=== PATIENT | female | born 1940 | race Caucasian/White ===

== ENCOUNTER 2016-12-26 09:47 | Emergency (ER) | payer OTHER ==
[~2016-12-26 09:47] MED LIST: ALBU6.7H INH; CEFU1TAB20 PO; DOXY100T PO; FEMORA; GLIM1 PO; HYDR-3533 PO; INHALER; LEVO100T75 PO; METF-324 OR; NEBUMIS6; PRAV10 PO; PRED20 PO; ULTR50TA PO; ZAFI20TA PO
[2016-12-26 09:55] VITALS: BP 148/76; PULSE 108; RESP 20; TEMP 98.3; O2SAT 97
[2016-12-26] MEDS ORDERED: ALBU6.7H INH (10:12)
[2016-12-26] MEDS ORDERED: METF1000 PO (10:12)
[2016-12-26] MEDS ORDERED: LEVO100T5 PO (10:12)
[2016-12-26] MEDS ORDERED: ZAFI1TAB4 PO (10:12)
[2016-12-26] MEDS ORDERED: AMAR4TAB PO (10:12)
[2016-12-26] MEDS ORDERED: PRAV10TA PO (10:12)
--- NOTE | 2016-12-26 10:25 | PD ---
HPI Chief Complaint: Complaint Time Seen by Provider: 10:08 Travel History International Travel<30 days: No Contact w/Intl Traveler<30days: No Traveled to known affect area: No History of Present Illness HPI This patient complains primarily of pain from her sciatica. She has pain in the left buttock and radiates down the left leg. She is not a new problem. She says that she's been sitting in a recliner in hospice for 2 weeks keeping an eye and her and this is flare of her sciatica. No injury or fever. 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 Symptom severity is moderate. She also thinks she might have a UTI because she has dysuria. PFSH Past Medical History Arthritis: Yes Asthma: Yes Cancer: Yes (LEFT BREAST) Cardiovascular Problems: No High Cholesterol: Yes Chemotherapy: Yes (COMPLETED) Diabetes: Yes Patient Takes Glucophage: Yes Diminished Hearing: No Glaucoma: No Hepatitis: No Hypertension: Yes Implanted Vascular Access Dvce: Yes Respiratory: Yes (ASTHMA) Thyroid Disease: Yes (HYPOTHYROIDISM) Tetanus Vaccination: > 5 Years Influenza Vaccination: Yes ?: Not Tubal Ligation: Yes Past Surgical History Abdominal Surgery: Yes (HECTOR) Body Medical Devices: INFUSAPORT ?? Cardiac Surgery: No Cholecystectomy: Yes Ear Surgery: No Endocrine Surgery: No Eye Surgery: No Genitourinary Surgery: No Gynecologic Surgery: Yes (TUBAL LIGATION) Neurologic Surgery: No Oral Surgery: No Pacemaker: No Other Surgery: Yes (LEFT MASECTOMY 2009, 2 SINUS SURGERY) Social History Alcohol Use: No Tobacco Use: No Substance Use: No Allergies-Medications (Allergen,Severity, Reaction): Coded Allergies: Codeine (Verified Allergy, Severe, UNKNOWN, 12/26/16) Contrast Media (Verified Allergy, Severe, HIVES, 12/26/16) Keflex (Verified Allergy, Severe, Anaphylaxis, 12/26/16) Sudafed (Unverified Allergy, Severe, RAPID HEART RATE, 12/26/16) Darvon (Verified Allergy, Mild, CHEST PAIN, 12/26/16) Uncoded Allergies: MOTH BALLS (Allergy, Severe, SWELLING, 07/02/11) Reported Meds & Prescriptions Reported Meds & Active Scripts Active Bactrim DS (Sulfamethoxazole-Trimethoprim) 800-160 Mg Tab 1 Tab PO BID Percocet (Oxycodone-Acetaminophen) 5-325 mg Tab 1 Tab PO Q6H PRN Reported Zafirlukast 20 Mg Tab 20 Mg PO BIDAC Pravastatin 10 Mg Tab 10 Mg PO DAILY Metformin (Metformin HCl) 1,000 Mg Tab 1,000 Mg PO BIDPC With meals Levothyroxine (Levothyroxine Sodium) 100 Mcg Tab 100 Mcg PO DAILY Amaryl (Glimepiride) 4 Mg Tab 4 Mg PO BID Take with breakfast or the first main meal Proventil Hfa 6.7 GM Inh (Albuterol Sulfate) 90 Mcg/Act Aer 1 Puff INH BID PRN [Femora] [Nebulizer] Review of Systems General / Constitutional: No: Fever Eyes: No: Visual changes HENT: No: Headaches Cardiovascular: No: Chest Pain or Discomfort Respiratory: No: Shortness of Breath Gastrointestinal: No: Abdominal Pain Genitourinary: Positive: Dysuria Musculoskeletal: Positive: Pain Skin: No Rash Neurologic: No: Weakness Psychiatric: No: Depression Endocrine: No: Polydipsia Hematologic/Lymphatic: No: Easy Bruising Physical Exam Narrative GENERAL: Well-nourished, well-developed patient with sciatica pain . SKIN: Focused skin assessment reveals no rash and nodules. Skin is Warm and dry. HEAD: Atraumatic. Normocephalic. EYES: Pupils equal and round. No scleral icterus. No injection or drainage. ENT: No nasal bleeding or discharge. Mucous membranes pink and moist. NECK: Trachea midline. No JVD. CARDIOVASCULAR: Regular rate and rhythm. No murmur appreciated. RESPIRATORY: No accessory muscle use. Clear to auscultation. Breath sounds equal bilaterally. GASTROINTESTINAL: Abdomen soft, non-tender, nondistended. Hepatic and splenic margins not palpable. MUSCULOSKELETAL: No obvious deformities. No clubbing. No cyanosis. No edema. Positive straight leg raise on the left NEUROLOGICAL: Awake and alert. No obvious cranial nerve deficits. Motor grossly within normal limits. Normal speech. PSYCHIATRIC: Appropriate mood and affect; insight and judgment normal. Data Data Last Documented VS Vital Signs Date Time Temp Pulse Resp B/P Pulse Ox O2 Delivery O2 Flow Rate FiO2 12/26/16 09:55 98.3 108 20 148/76 97 Orders Ketorolac Inj (Toradol Inj) (12/26/16 10:30) Urinalysis - C+S If Indicated (12/26/16 10:17) Urine Culture (12/26/16 10:25) Labs Laboratory Tests Test 12/26/16 10:25 Urine Collection Type CLEAN CATCH Urine Color YELLOW Urine Turbidity SLIGHT Urine pH 5.0 Urine Specific [place] 1.008 Urine Protein NEG mg/dL Urine Glucose (UA) NEG mg/dL Urine Ketones NEG mg/dL Urine Occult Blood TRACE Urine Nitrite NEG Urine Bilirubin NEG Urine Leukocyte Esterase MOD Urine RBC 4-9 /hpf Urine WBC 50-99 /hpf Urine WBC Clumps MANY Urine Squamous Epithelial 0-5 /hpf Cells Urine Bacteria OCC /hpf Microscopic Urinalysis Comment CULTURE INDICATED Urine Collection Time 10:25 [facility] Medical Decision Making Medical Screen Exam Complete: Yes Emergency Medical Condition: Yes Medical Record Reviewed: Yes Differential Diagnosis Sciatica, hamstring pain, chronic pain Narrative Course I have reviewed the patient's electronic medical record. I gave her injection of Toradol She drove herself here She is at neurologic baseline without red flags for imaging. No fever or injury etc. Urinalysis shows pyuria and consistent with infection and 5 days of Bactrim written I wrote a few Percocet for pain relief To follow-up with primary care Diagnosis Primary Impression: Sciatic leg pain Additional Impression: Cystitis Additional Instructions: The patient was advised to follow up with their physician and return if they worsen. The patient was warned about potential sedation for the medications they will receive on prescription. Med/Other Pt SpecificInfo: Prescription(s) given Scripts Sulfamethoxazole-Trimethoprim (Bactrim DS)800-160 Mg Tab1 Tab PO BID #10 TAB Ref 0 Prov:Alexei Pedro MD 12/26/16 Oxycodone-Acetaminophen (Percocet)5-325 mg Tab1 Tab PO Q6H PRN (PAIN) #15 TAB Ref 0 Prov:Alexei Pedro MD 12/26/16 Disposition: 01 DISCHARGE HOME Condition: Stable Alexei Pedro MD Dec 26, 2016 10:25
[2016-12-26 10:30] LABS: BLOOD, URINE TRACE (NEG); GLUCOSE,URINE NEG (NEG); KETONE, URINE NEG (NEG); NITRITE,URINE NEG (NEG)
[2016-12-26] MEDS ORDERED: KETOROLAC TROMETHAMINE 60 MG/2 ML (IM) VIAL IM ONE (10:30)
[2016-12-26 10:34] LABS: METHOD OF COLLECTION CLEAN CATCH; URINE COLOR YELLOW (YELLW/STRAW)
[2016-12-26 10:36] LABS: BACTERIA, URINE OCC /hpf; COMMENT (UR) CULTURE INDICATED; CULTURE IF INDICATED CULTURE INDICATED; SQUAMOUS EPITHELIAL CELL URINE 0-5 /hpf (0-5)
[2016-12-26] MEDS ORDERED: PERC5TAB12 PO (11:36)
[2016-12-26] MEDS ORDERED: BACT800T5 PO (11:36)
[2016-12-26 11:37] VITALS: BP 142/54; PULSE 84; RESP 16; O2SAT 99
== END 2016-12-26 11:47 | disposition home or self-care (01) ==
LOC: PHED 09:47
DX: M54.32 Sciatica, left side (principal); N30.90 Cystitis, unspecified without hematuria; B96.20 Unspecified Escherichia coli [E. coli] as the cause of diseases classified elsewhere; E11.9 Type 2 diabetes mellitus without complications; I10 Essential (primary) hypertension; E03.9 Hypothyroidism, unspecified; E78.00 Pure hypercholesterolemia, unspecified; Z79.84 Long term (current) use of oral hypoglycemic drugs; Z87.39 Personal history of other diseases of the musculoskeletal system and connective tissue; Z87.09 Personal history of other diseases of the respiratory system; Z85.3 Personal history of malignant neoplasm of breast
CPT/HCPCS: 81001; 87077; 87086; 87186; 96372; 99284; J1885

== ENCOUNTER 2016-12-29 12:27 | Emergency (ER) | payer OTHER ==
[~2016-12-29] VITALS: Ht 157.5 cm; Wt 93.8 kg
[~2016-12-29 12:27] MED LIST changes: +AMAR4TAB PO; +BACT800T5 PO; -CEFU1TAB20 PO; -DOXY100T PO; -GLIM1 PO; -HYDR-3533 PO; -INHALER; +LEVO100T5 PO; -LEVO100T75 PO; -METF-324 OR; +METF1000 PO; +PERC5TAB12 PO; -PRAV10 PO; +PRAV10TA PO; -PRED20 PO; -ULTR50TA PO; +ZAFI1TAB4 PO; -ZAFI20TA PO
[2016-12-29 12:33] VITALS: BP 144/60; PULSE 82; RESP 18; TEMP 98.1; O2SAT 98
[2016-12-29] MEDS ORDERED: traMADol HCL 50 MG TAB PO ONE (13:45)
[2016-12-29] MEDS ORDERED: KETOROLAC TROMETHAMINE 60 MG/2 ML (IM) VIAL IM ONE (13:45)
[2016-12-29 13:56] LABS: BLOOD, URINE NEG (NEG); GLUCOSE,URINE NEG (NEG); KETONE, URINE NEG (NEG); NITRITE,URINE NEG (NEG)
[2016-12-29 14:04] LABS: METHOD OF COLLECTION CLEAN CATCH; URINE COLOR STRAW (YELLW/STRAW)
[2016-12-29 14:07] LABS: COMMENT (UR) CULT NOT INDICATED; CULTURE IF INDICATED CULT NOT INDICATED; SQUAMOUS EPITHELIAL CELL URINE 0-2 /hpf (0-5); URIC ACID CRYSTALS, URINE MANY /hpf; WBC, URINE 0-2 /hpf (0-5)
[2016-12-29] MEDS ORDERED: TRAM50TA PO (14:16)
--- NOTE | 2016-12-29 14:17 | PD ---
HPI Chief Complaint: Pain: Acute or Chronic Time Seen by Provider: 13:27 Travel History International Travel<30 days: No Contact w/Intl Traveler<30days: No Traveled to known affect area: No History of Present Illness HPI 76 f c/o L low back pain with radiation inferiorly to ankle for approx one week. she was seen here and reports tramadol only marginally helpful. she cannot tolerate stronger opioids. she reports a hx of sciatica in the past however pain today is worse than before. she also c/o urinary frequency and dysuria. no fever/chills/nausea/vomiting. no fecal/urinary incontinence, no numbness tingling in saddle distribution. PFSH Past Medical History Arthritis: Yes Asthma: Yes Cancer: Yes (LEFT BREAST) Cardiovascular Problems: No High Cholesterol: Yes Chemotherapy: Yes (COMPLETED) Diabetes: Yes Patient Takes Glucophage: Yes Diminished Hearing: No Glaucoma: No Hepatitis: No Hypertension: Yes Implanted Vascular Access Dvce: Yes Respiratory: Yes (ASTHMA) Thyroid Disease: Yes (HYPOTHYROIDISM) Tetanus Vaccination: > 5 Years Influenza Vaccination: Yes ?: Not Tubal Ligation: Yes Past Surgical History Abdominal Surgery: Yes (HECTOR) Body Medical Devices: INFUSAPORT ?? Cardiac Surgery: No Cholecystectomy: Yes Ear Surgery: No Endocrine Surgery: No Eye Surgery: No Genitourinary Surgery: No Gynecologic Surgery: Yes (TUBAL LIGATION) Neurologic Surgery: No Oral Surgery: No Pacemaker: No Other Surgery: Yes (LEFT MASECTOMY 2009, 2 SINUS SURGERY) Social History Alcohol Use: No Tobacco Use: No Substance Use: No Allergies-Medications (Allergen,Severity, Reaction): Coded Allergies: Codeine (Verified Allergy, Severe, UNKNOWN, 12/29/16) Contrast Media (Verified Allergy, Severe, HIVES, 12/29/16) Keflex (Verified Allergy, Severe, Anaphylaxis, 12/29/16) Sudafed (Unverified Allergy, Severe, RAPID HEART RATE, 12/29/16) Darvon (Verified Allergy, Mild, CHEST PAIN, 12/29/16) Uncoded Allergies: MOTH BALLS (Allergy, Severe, SWELLING, 07/02/11) Reported Meds & Prescriptions Reported Meds & Active Scripts Active Tizanidine (Tizanidine HCl) 2 Mg Cap 2 Mg PO TID Prednisone 20 Mg Tab 40 Mg PO DAILY 4 Days Take 40 mg (2 tablets) daily for 5 days Bactrim DS (Sulfamethoxazole-Trimethoprim) 800-160 Mg Tab 1 Tab PO BID Percocet (Oxycodone-Acetaminophen) 5-325 mg Tab 1 Tab PO Q6H PRN Reported Zafirlukast 20 Mg Tab 20 Mg PO BIDAC Pravastatin 10 Mg Tab 10 Mg PO DAILY Metformin (Metformin HCl) 1,000 Mg Tab 1,000 Mg PO BIDPC With meals Levothyroxine (Levothyroxine Sodium) 100 Mcg Tab 100 Mcg PO DAILY Amaryl (Glimepiride) 4 Mg Tab 4 Mg PO BID Take with breakfast or the first main meal Proventil Hfa 6.7 GM Inh (Albuterol Sulfate) 90 Mcg/Act Aer 1 Puff INH BID PRN [Femora] [Nebulizer] Review of Systems Except as stated in HPI: all other systems reviewed are Neg Physical Exam Narrative GENERAL: 76 F pleasant, WNWD, NAD SKIN: Warm and dry. HEAD: Atraumatic. Normocephalic. EYES: Pupils equal and round. No scleral icterus. No injection or drainage. ENT: No nasal bleeding or discharge. Mucous membranes pink and moist. NECK: Trachea midline. No JVD. CARDIOVASCULAR: Regular rate and rhythm. RESPIRATORY: No accessory muscle use. Clear to auscultation. Breath sounds equal bilaterally. GASTROINTESTINAL: Abdomen soft, non-tender, nondistended. Hepatic and splenic margins not palpable. MUSCULOSKELETAL: Extremities without clubbing, cyanosis, or edema. No obvious deformities. NEUROLOGICAL: Awake and alert. No obvious cranial nerve deficits. Motor grossly within normal limits. Five out of 5 muscle strength in the arms and legs. Normal speech. TTP left lower back at level of iliac crest. 1+ DTR on left 2+ on right. Pt is ambulatory. Ankle flexion/extension normal on R and slightly diminished on left which the patient states is normal for her. PSYCHIATRIC: Appropriate mood and affect; insight and judgment normal. Data Data Last Documented VS Vital Signs Date Time Temp Pulse Resp B/P Pulse Ox O2 Delivery O2 Flow Rate FiO2 12/29/16 14:46 89 16 151/62 98 12/29/16 12:33 98.1 Room Air vs reviewed Orders Ketorolac Inj (Toradol Inj) (12/29/16 13:45) Tramadol (Ultram) (12/29/16 13:45) Urinalysis - C+S If Indicated (12/29/16 13:38) Labs Laboratory Tests Test 12/29/16 13:45 Urine Collection Type CLEAN CATCH Urine Color STRAW Urine Turbidity SLIGHT Urine pH 6.0 Urine Specific [place] 1.016 Urine Protein NEG mg/dL Urine Glucose (UA) NEG mg/dL Urine Ketones NEG mg/dL Urine Occult Blood NEG Urine Nitrite NEG Urine Bilirubin NEG Urine Leukocyte Esterase TRACE Urine WBC 0-2 /hpf Urine Squamous Epithelial 0-2 /hpf Cells Urine Uric Acid Crystals MANY /hpf Microscopic Urinalysis Comment CULT NOT INDICATED MDM Medical Decision Making Medical Screen Exam Complete: Yes Emergency Medical Condition: Yes Medical Record Reviewed: Yes Differential Diagnosis Sciatica, epidural abscess, paraspinal abscess, compression on the spinal cord due to disc disease, myofascial strain, UTI Narrative Course UA: no UTI present Toradol given here. Prednisone script. Return precautions discussed. Outpatient plan discussed and the patient is agreeable with it. Diagnosis Primary Impression: Sciatic leg pain Referrals: Primary Care Physician 2 days Additional Instructions: You have a choice when it comes to health care, and we are glad that you chose [facility]. Hopefully, we have met your expectations on today's visit. You are welcome to return to [facility] at any time, as we are committed to meeting the health care needs of our community. Med/Other Pt SpecificInfo: Prescription(s) given Scripts Tizanidine 2 Mg Cap2 Mg PO TID #10 CAP Ref 0 Prov:Reymundo Hughes MD 12/29/16 Prednisone 20 Mg Tab40 Mg PO DAILY 4 Days Ref 0 Take 40 mg (2 tablets) daily for 5 days Prov:Reymundo Hughes MD 12/29/16 Disposition: 01 DISCHARGE HOME Condition: Stable Reymundo Hughes MD Dec 29, 2016 14:17
[2016-12-29] MEDS ORDERED: TIZA2CAP3 PO (14:36)
[2016-12-29] MEDS ORDERED: PRED20 PO (14:36)
[2016-12-29 14:46] VITALS: BP 151/62
== END 2016-12-29 14:48 | disposition home or self-care (01) ==
LOC: PHED 12:27
DX: M54.32 Sciatica, left side (principal); R35.0 Frequency of micturition; R30.0 Dysuria; I10 Essential (primary) hypertension; E11.9 Type 2 diabetes mellitus without complications; E03.9 Hypothyroidism, unspecified; E78.00 Pure hypercholesterolemia, unspecified; Z79.84 Long term (current) use of oral hypoglycemic drugs; Z87.39 Personal history of other diseases of the musculoskeletal system and connective tissue; Z87.09 Personal history of other diseases of the respiratory system; Z85.3 Personal history of malignant neoplasm of breast
CPT/HCPCS: 81001; 96372; 99284; J1885

== ENCOUNTER 2017-01-20 06:13 | Day surgery (SDC) | payer OTHER ==
[~2017-01-20] VITALS: Ht 157.5 cm; Wt 93.0 kg
[~2017-01-20 06:13] MED LIST changes: +PRED20 PO; +TIZA2CAP3 PO
[2017-01-20] MEDS ORDERED: SODIUM CHLORIDE 0.9% 1000 ML IV SCH (07:00)
[2017-01-20] MEDS ORDERED: INSU1.2I SQ (07:00)
[2017-01-20 07:02] VITALS: BP 181/84; PULSE 85; RESP 18; TEMP 98; O2SAT 96
[2017-01-20 07:56] LABS: AUTOMATED NEUTROPHIL # 4.9 TH/MM3 (1.8-7.7); BASOPHIL # 0.1 TH/MM3 (0-0.2); BASOPHIL % 0.9 % (0.0-2.0); EOSINOPHIL # 0.2 TH/MM3 (0-0.4); EOSINOPHIL % 2.7 % (0.0-4.0); HEMATOCRIT 28.4 % (35.0-46.0); HEMO FLAGS DIFF FINAL; LYMPH % 19.4 % (9.0-44.0); LYMPHOCYTE # 1.4 TH/MM3 (1.0-4.8); MEAN CELL VOLUME 87.5 FL (80.0-100.0); MEAN CORPUSCULAR HEMOGLOBIN 29.5 PG (27.0-34.0); MEAN CORPUSCULAR HGB CONC 33.7 % (32.0-36.0); MONO % 7.8 % (0.0-8.0); NEUT % 69.2 % (16.0-70.0); PLATELET COUNT 273 TH/MM3 (150-450); RED BLOOD COUNT 3.25 MIL/MM3 (4.00-5.30); RED CELL DISTRIBUTION WIDTH 14.8 % (11.6-17.2); WHITE BLOOD COUNT 7.1 TH/MM3 (4.0-11.0)
[2017-01-20 08:00] LABS: INTERNATIONAL NORMALIZED RATIO 0.9 RATIO; PROTHROMBIN TIME - PATIENT 10.3 SEC (9.8-11.6)
[2017-01-20] MEDS ORDERED: KETOROLAC TROMETHAMINE 30 MG/ML (IVP) VIAL ONE (08:25)
[2017-01-20] MEDS ORDERED: KETOROLAC TROMETHAMINE 30 MG/ML (IVP) VIAL IV PUSH ONE (08:30)
[2017-01-20] MEDS ORDERED: ACETAMINOPHEN/HYDROcodone 325 MG/5 MG TAB PO ONE (08:45)
[2017-01-20] MEDS ORDERED: MIDAZOLAM HCL 2 MG/2 ML VIAL ONE (09:04)
[2017-01-20] MEDS ORDERED: ceFAZolin 2 GM PREMIX 50 ML ONE (09:04)
[2017-01-20] MEDS ORDERED: fentaNYL CITRATE 250 MCG/5 ML AMP ONE (09:05)
[2017-01-20] MEDS ORDERED: LIDOCAINE 2%/EPINEPHrine PF 1:200,000 20ML SDV ONE (09:26)
--- NOTE | 2017-01-20 10:13 | PD.RAD ---
Post Procedure Progress Note Pre Procedure Diagnosis: (1) History of breast cancer Post Procedure Diagnosis: (1) History of breast cancer Procedure Date: Jan 20, 2017 Supervising Radiologist: Armando Dave Proceduralist/Assist: Cece Parish RT(R), RT Guy(R)() Anesthesia: Local, Analgesia, Conscious Sedation Plan of Activity Patient to Unit: ROPU Patient Condition: Good See PACS Report for procedural detail/treatment Central Venous Access Device Procedure 1 Right Internal Jugular Infusaport Removal single lumen [place]: 8 Findings: Difficult to remove catheter itself due to calcified tissues surrounding device. Slowly removed en bloc with steady pressure and blunt dissection Armando Dave MD Jan 20, 2017 10:13
[2017-01-20 10:15] VITALS: BP 130/52; PULSE 74; RESP 16; TEMP 97.5; O2SAT 96
[2017-01-20 10:30] VITALS: BP 128/57; PULSE 76; RESP 16; O2SAT 96
[2017-01-20] MEDS ORDERED: ceFAZolin 2 GM PREMIX 50 ML - implanted port removal IV SCH (10:30)
[2017-01-20 11:00] VITALS: BP 119/63; PULSE 68; RESP 16; O2SAT 96
[2017-01-20 11:30] VITALS: BP 124/65; PULSE 72; RESP 16; O2SAT 96
--- NOTE | 2017-01-20 11:38 | RADRPT ---
EXAM DATE/TIME: 01/20/2017 07:08 [facility] COMPARISON: No previous studies available for comparison. INDICATIONS : Patient with history of breast cancer in need of right port removal. MEDICAL HISTORY : 1.DM 2.Left breast cancer 3.COPD 4.Anemia SURGICAL HISTORY : 1.Cholecystectomy 2.Sinus surgery 3.Uterine surgery 4.Mastectomy ENCOUNTER: Subsequent ACUITY: > 1 year PAIN SCORE: 8/10 Lower back/Left leg SEDATION TIME: 30 minutes 1.) 2 mg midazolam (Versed) IV 2.) 150 mcg fentanyl (Sublimaze) IV Prophylactic antibiotics were administered with appropriate pre-procedure timing. Vancomycin within 2 hrs of procedure, Ancef (or alternative) within 1 hr of procedure. PROCEDURE : 1. Removal of [id number]. 2. Conscious sedation with continuous EKG and oximetry monitoring. The risk, benefits and potential complications of [id number] removal were discussed. Written conse nt was obtained. The patient was placed supine. The chest wall was prepped in sterile fashion. Full sterile techniqu e was used, including cap, mask, sterile gloves and gown, and a large sterile sheet. Hand hygiene an d 2% chlorhexidine and/or Betadine/alcohol prep was utilized per protocol for cutaneous antisepsis. The skin and subcutaneous tissues were infiltrated with local anesthetic solution. A small incision w as made, the subcutaneous pocket was opened. The port was dissected from the subcutaneous tissues and easily removed in one piece. The pocket incision was closed with subcuticular Vicryl suture. Steri -Strips were applied. Conscious sedation was performed with the prescribed dosages and duration as above in the presence of an independent trained radiology nurse to assist in the monitoring of the patient. EKG and oximetry remained stable throughout the procedure. The patient tolerated the procedure well and there were no complications. The patient was sent to post anesthesia recovery in stable condition. CONCLUSION: Uncomplicated port removal as above. Armando Dave MD on January 20, 2017 at 11:36 Board Certified Radiologist. This report was verified electronically.
== END 2017-01-20 12:05 | disposition home or self-care (01) ==
LOC: HROP 06:13 → HRIP 06:17 → HROP 12:05
PROVIDERS: ATTEND Family Medicine
DX: Z45.2 Encounter for adjustment and management of vascular access device (principal); E11.9 Type 2 diabetes mellitus without complications; J44.9 Chronic obstructive pulmonary disease, unspecified; D64.9 Anemia, unspecified; N18.3 Chronic kidney disease, stage 3 (moderate); Z85.3 Personal history of malignant neoplasm of breast; Z01.818 Encounter for other preprocedural examination
CPT/HCPCS: 36590; 85025; 85610; 85730; 99152; 99153; J0690; J1885; J2250; J3010